=== PATIENT | male | born 2000 | race Caucasian/White ===

== ENCOUNTER 2020-06-08 11:15 | Emergency (ER) | payer MEDICAID ==
[~2020-06-08] VITALS: Ht 175.3 cm; Wt 75.0 kg
[2020-06-08 12:31] VITALS: BP 115/68
== END 2020-06-08 13:21 | disposition home or self-care (01) ==
LOC: ER 11:42
DX: Z04.89 Encounter for examination and observation for other specified reasons (principal); F84.0 Autistic disorder
CPT/HCPCS: 99283